=== PATIENT | male | born 1940 | race Caucasian/White ===

== ENCOUNTER 2017-02-11 15:11 | Emergency (ER) | payer BC, OTHER ==
[~2017-02-11] VITALS: Ht 185.4 cm; Wt 124.7 kg
[2017-02-11 15:50] LABS: ABSOLUTE NEUTROPHILS 6.9 thou/uL (1.4-8.2); BASOPHILS 0.8 % (0.0-2.0); EOSINOPHILS 4.2 % (0.0-3.0); HEMATOCRIT 41.6 % (42.0-52.0); HEMOGLOBIN 14.5 gm/dL (14.0-18.0); LYMPHOCYTES 15.9 % (24.0-44.0); MCH 31.7 pg (26.0-34.0); MCHC 34.9 g/dL (28.0-37.0); MCV 90.8 fL (80.0-100.0); MONOCYTES 8.5 % (1.0-8.0); PLATELET COUNT 455 thou/uL (150-400); POLYS 70.6 % (36.0-66.0); RBC 4.59 mil/uL (4.50-6.00); RDW 14.4 % (10.5-14.5); WBC 9.8 thou/uL (4.0-11.0)
[2017-02-11 15:51] LABS: MANUAL DIFF NO
[2017-02-11 16:06] LABS: CALCIUM 9.4 mg/dL (8.5-10.1); CREATININE 1.5 mg/dL (0.7-1.3); POTASSIUM 3.9 mmol/L (3.5-5.1)
[2017-02-11 16:14] LABS: ALBUMIN 4.1 g/dL (3.4-5.0); TOTAL BILIRUBIN 0.7 mg/dL (<0.1-1.0); TOTAL PROTEIN 9.2 g/dL (6.4-8.2)
[2017-02-11] MEDS ORDERED: PREDNISONE 20 M20 MG PO (16:21)
[2017-02-11] MEDS ORDERED: AUGMENTIN 875875 MG PO (16:21)
[2017-02-11 16:42] VITALS: BP 140/91
== END 2017-02-11 16:44 | disposition home or self-care (01) ==
LOC: ER 15:11 → EDBD 15:11 → ER 16:44
PROVIDERS: Physician Assistant
DX: J32.9 Chronic sinusitis, unspecified (principal); Z88.1 Allergy status to other antibiotic agents